=== PATIENT | male | born 1970 | race Caucasian/White ===

== ENCOUNTER 2021-09-09 13:54 | Outpatient (CLI) | payer OTHER, SELFPAY ==
[2021-09-09 15:38] LABS: Absolute Lymphocyte Count 1.76 X10^3/uL (0.83-4.51); Absolute Neutrophil Count 1.8 X10^3/uL (2.0-7.7); Basophil# 0.09 X10^3/uL; Basophil% 2.1 % (0-1); Eosinophil# 0.29 X10^3/uL; Eosinophils% 6.9 % (0-5); Hematocrit 34.6 % (40-54); Hemoglobin 11.5 g/dL (13.0-16.5); Lymphocyte # 1.76 X10^3/ul (0.83-4.51); Mean Corp Hgb Conc 33.2 g/dL (32-36); Mean Corpuscular Hgb 25.7 pg (27.0-32.0); Mean Corpuscular Volume 77.2 fL (80-94); Mean Platelet Vol. 10.6 fl (6.2-12.0); Monocyte# 0.24 X10^3/uL; Monocyte% 5.7 % (0-10); NRBC Flagged by Analyzer 0 % (0-5); Neutrophil % 43.1 % (47-70); Platelet Count 236 K/mm3 (150-450); RBC Distribution Width CV 13.2 % (11.6-14.6); RBC Distribution Width SD 37.2 fl (35.1-43.9); Red Blood Count 4.48 M/mm3 (4.6-6.2); White Blood Count 4.2 K/mm3 (4.4-11.0)
[2021-09-09 15:50] LABS: Cholesterol 244 mg/dL (200); High Density Lipoprotein 26 mg/dL; Triglycerides 798 mg/dL
[2021-09-09 15:51] LABS: Vitamin D,25 Hydroxy 21.4 ng/mL
[2021-09-09 16:23] LABS: Follicle Stimulating Hormone 1.1 mIU/mL; Free T3 1.6 pg/mL (2.18-3.98); Luteinizing Hormone < 0.2 mIU/mL; PSA,Total - Annual Screen < 0.01 ng/mL (0.00-4.00); T4 Free Direct 0.39 ng/dL (0.76-1.46)
== END 2021-09-09 23:59 | disposition home or self-care (01) ==
LOC: BIMLAB 13:55
PROVIDERS: PCP Preventive Medicine Occupational Medicine; Referring Provider Internal Medicine Endocrinology, Diabetes & Metabolism; Visit Provider Internal Medicine Endocrinology, Diabetes & Metabolism
DX: E55.9 Vitamin D deficiency, unspecified (principal); E22.0 Acromegaly and pituitary gigantism; E03.8 Other specified hypothyroidism; E29.1 Testicular hypofunction
CPT/HCPCS: 36415; 80061; 82024; 82306; 82533; 83001; 83002; 84146; 84153; 84305; 84402; 84403; 84439; 84481; 85025; G0103

== ENCOUNTER → 2022-08-14 | Outpatient (CLI) | payer OTHER, SELFPAY ==
[2022-08-14 17:34] LABS: Follicle Stimulating Hormone 0.7 mIU/mL; Luteinizing Hormone < 0.2 mIU/mL; Prolactin 6.7 ng/mL
== END | disposition home or self-care (01) ==
LOC: LAB 15:43
PROVIDERS: PCP Preventive Medicine Occupational Medicine; Referring Provider Internal Medicine Endocrinology, Diabetes & Metabolism; Visit Provider Internal Medicine Endocrinology, Diabetes & Metabolism
DX: Z98.890 Other specified postprocedural states (principal); Z86.018 Personal history of other benign neoplasm
CPT/HCPCS: 36415; 83001; 83002; 84146

== ENCOUNTER → 2022-08-17 | Outpatient (CLI) | payer OTHER, SELFPAY ==
[2022-08-17 16:34] LABS: Absolute Lymphocyte Count 1.38 X10^3/uL (0.83-4.51); Absolute Neutrophil Count 2.7 X10^3/uL (2.0-7.7); Basophil# 0.03 X10^3/uL; Basophil% 0.7 % (0-1); Eosinophil# 0.07 X10^3/uL; Eosinophils% 1.6 % (0-5); Hematocrit 32.4 % (40-54); Hemoglobin 10.7 g/dL (13.0-16.5); Lymphocyte # 1.38 X10^3/ul (0.83-4.51); Lymphocyte % 31.2 % (19-41); Mean Corpuscular Hgb 27.2 pg (27.0-32.0); Mean Corpuscular Volume 82.2 fL (80-94); Mean Platelet Vol. 10.6 fl (6.2-12.0); Monocyte# 0.24 X10^3/uL; Monocyte% 5.4 % (0-10); NRBC Flagged by Analyzer 0 % (0-5); Neutrophil # 2.67 X10^3/uL (2.7-7.7); Neutrophil % 60.4 % (47-70); Platelet Count 196 K/mm3 (150-450); RBC Distribution Width CV 13.4 % (11.6-14.6); RBC Distribution Width SD 40.4 fl (35.1-43.9); Red Blood Count 3.94 M/mm3 (4.6-6.2); White Blood Count 4.4 K/mm3 (4.4-11.0)
[2022-08-17 17:30] LABS: ALB/GLOB Ratio 1.3 RATIO (0.9-2.4); AST(SGOT) 19 U/L (15-37); Alanine Aminotransfer ALT/SGPT 30 U/L (16-61); Albumin, Serum 4.1 g/dL (3.2-5.0); Alkaline Phosphatase 46 U/L (45-117); Anion Gap 7 (5-15); BUN 20 mg/dL (7-18); BUN/Creat Ratio 19.8 RATIO (10-20); Calcium,Total 8.9 mg/dL (8.5-10.1); Chloride 105 mmol/L (98-107); Creatinine, Serum 1.01 mg/dL (0.70-1.30); EST Glomerular Filtration Rate 83 mL/min (>60); Est Glom Filt Rate - Afr Amer 100 mL/min (>60); Free T3 1.8 pg/mL (2.18-3.98); Globulin 3.1 g/dL (2.2-4.2); Glucose 128 mg/dL (74-106); Potassium 3.6 mmol/L (3.5-5.1); Protein, Total 7.2 g/dL (6.4-8.2); Sodium Level 139 mmol/L (136-145); T4 Free Direct 0.84 ng/dL (0.76-1.46)
[2022-08-22 08:10] LABS: Testosterone, % Free 1.98 % (1.50-4.20); Testosterone, Free 3.68 ng/dL (5.00-21.00)
[2022-08-22 10:10] LABS: Insulin Like Growth Factor 45 ng/mL (74-255); Testosterone, Total 186 ng/dL (264-916)
== END | disposition home or self-care (01) ==
LOC: LAB 15:13
PROVIDERS: PCP Preventive Medicine Occupational Medicine; Visit Provider Internal Medicine Endocrinology, Diabetes & Metabolism
DX: E27.49 Other adrenocortical insufficiency (principal); E22.0 Acromegaly and pituitary gigantism; E29.1 Testicular hypofunction; E03.8 Other specified hypothyroidism
CPT/HCPCS: 80053; 84305; 84402; 84403; 84439; 84481; 85025